=== PATIENT | female | born 2000 | race Caucasian/White ===

== ENCOUNTER → 2019-12-21 | Outpatient (CLI) | payer MEDICAID ==
--- NOTE | 2019-12-21 13:10 | Diagnostic Imaging Report ---
INDICATION: survey. TECHNIQUE: Multiple real-time grayscale images were obtained over the gravid uterus. COMPARISON: None FINDINGS: There is a single live fetus in a cephalic presentation. heart rate was recorded at 158 bpm. Placenta is anterior. Amniotic fluid index is 8.7 cm. survey demonstrates kidneys, bladder and stomach to be unremarkable. brain is unremarkable. There is a four-chamber heart. There is a three-vessel cord with normal insertion. The spine is unremarkable. Maternal adnexa was not evaluated. Biometrical measurements are as follows: Biparietal 4.98 cm, age 21 weeks 1 days. Head circumference 18.55 cm, age 21 weeks 0 days. Abdominal circumference 15.17 cm, age 20 weeks 3 days. Femur length 3.48 cm, age 21 weeks 0 days. Sonographic estimate age: 21 weeks 0 days. Sonographic estimated date of delivery: 05/02/2020. Estimated Weight: 371 gm (+/- 54 gm). LMP percentile: 61%. heart rate: 158 beats per minute. number: 1 of 1. IMPRESSION: Single live IUP 21 weeks 0 days gestational age. The estimated date of confinement sonographically is 05/02/2020. Dictated by: Dictated on workstation # [id number]
== END ==
LOC: RAD 12:00
PROVIDERS: ATTEND Obstetrics & Gynecology
DX: Z34.92 Encounter for supervision of normal pregnancy, unspecified, second trimester (principal); Z3A.21 21 weeks gestation of pregnancy
CPT/HCPCS: 76805

== ENCOUNTER 2020-01-27 | Outpatient (CLI) | payer MEDICAID ==
[~2020-01-27] VITALS: Ht 165.1 cm; Wt 68.3 kg
--- NOTE | 2020-01-27 00:05 | NUR ---
EVIE KELLY presented to unit via ambulatory from ED, with c/o NO MOVEMENT IN 6 HRS. EVIE KELLY weighed, gowned, voided, and to bed. EFHM and TOCO applied, VS taken. EVIE KELLY oriented to bed controls, call light, TV, heat, and A/C controls.
[2020-01-27 00:15] VITALS: BP 123/58
[2020-01-27 00:17] VITALS: BP 123/58
[2020-01-27] MEDS ORDERED: PREN-53 PO (00:22)
--- NOTE | 2020-01-27 00:45 | NUR ---
D/C instructions & reassurance given, pt. verbalized understanding, stating she had felt baby move X2 since on the monitor. Pt. signed D/C, copy of D/C to pt. Pt. left WS ambulatory, to home via private vehicle.
--- NOTE | 2020-01-30 11:08 | Physician Query-Final Dx ---
CARMEN ROBERTS 01/30/20 1108: Clinic Account Progress/Dx Physician Query: Please give diagnosis Please include # weeks gestation Date of Service January 27, 2020 at 00:00 RASHMI MARIE MD 01/31/20 0752: Clinic Account Progress/Dx DIAGNOSIS: Diagnosis Decreased movement at 25 weeks gestation CARMEN ROBERTS January 30, 2020 11:08 RASHMI MARIE MD January 31, 2020 07:52
== END 2020-01-27 00:45 | disposition home or self-care (01) ==
LOC: WSo → LDRP → WSo 00:45
PROVIDERS: ATTEND Obstetrics & Gynecology
DX: O36.8120 Decreased fetal movements, second trimester, not applicable or unspecified (principal); Z3A.25 25 weeks gestation of pregnancy
CPT/HCPCS: 99212

== ENCOUNTER → 2020-02-19 | Outpatient (CLI) | payer MEDICAID ==
[~2020-02-19] MED LIST: PREN-53 PO
== END ==
LOC: LAB FS 11:10
PROVIDERS: ATTEND Obstetrics & Gynecology
DX: O99.810 Abnormal glucose complicating pregnancy (principal); Z3A.00 Weeks of gestation of pregnancy not specified
CPT/HCPCS: 36415; 82951; 82952

== ENCOUNTER 2020-03-06 15:15 | Outpatient (CLI) | payer MEDICAID ==
--- NOTE | 2020-03-06 14:55 | NUR ---
pt ambulated to for NST. had BPP prior to arrival with 12/26 results. monitor applied. reports "not as much" movement today. will cont to monitor.
[2020-03-06 14:57] VITALS: BP 106/57
--- NOTE | 2020-03-06 15:43 | NUR ---
was called r/t monitor tracing and BPP results. order received to repeat BPP tomorrow.
--- NOTE | 2020-03-06 15:54 | NUR ---
dismissal instructions given, verbalizes understanding. reviewed kick count. instructed pt to follow up with repeat BPP tomorrow.
--- NOTE | 2020-03-06 15:55 | NUR ---
Pt ambulated to private vehicle with no sx's of distress noted.
--- NOTE | 2020-03-07 08:22 | Physician Query-Final Dx ---
CARMEN ROBERTS 03/07/20 0822: Clinic Account Progress/Dx Physician Query: Please give diagnosis Please give # weeks gestation Date of Service Mar 06, 2020 at 15:15 RASHMI MARIE MD 03/08/20 0733: Clinic Account Progress/Dx DIAGNOSIS: Diagnosis Decreased movement at 31 weeks gestation CARMEN ROBERTS Mar 07, 2020 08:22 RASHMI MARIE MD Mar 08, 2020 07:33
== END 2020-03-06 15:55 | disposition home or self-care (01) ==
LOC: WSo 15:15 → LDRP 15:15 → WSo 15:55
PROVIDERS: ATTEND Obstetrics & Gynecology
DX: O36.8130 Decreased fetal movements, third trimester, not applicable or unspecified (principal); Z3A.31 31 weeks gestation of pregnancy
CPT/HCPCS: 59025

== ENCOUNTER → 2020-03-06 | Outpatient (CLI) | payer MEDICAID ==
--- NOTE | 2020-03-06 15:54 | Diagnostic Imaging Report ---
INDICATION: Evaluate growth. TECHNIQUE: Multiple real-time grayscale images were obtained over the gravid uterus. COMPARISON: 12/21/2019. FINDINGS: There is a single live fetus in a transverse presentation, head to maternal left. heart rate was recorded at 155 bpm. Placenta is anterior. Amniotic fluid index is 10.7 cm. Cervical length is 3.7 cm. Biophysical profile is 4/8. Two-point reduction was given for lack of breathing movements as well as a two-point reduction for reduced movement. Biometrical measurements are as follows: Biparietal 7.9 cm, age 31 weeks 6 days. Head circumference 29.6 cm, age 32 weeks 5 days. Abdominal circumference 27.9 cm, age 32 weeks 0 days. Femur length 6.23 cm, age 32 weeks 2 days. Sonographic estimate age: 32 weeks 2 days. Sonographic estimated date of delivery: 04/29/2020. Estimated Weight: 1907 gm (+/- 279 gm). LMP percentile: 67%. heart rate: 155 beats per minute. number: 1 of 1. IMPRESSION: 1. Single live IUP at approximately 32 weeks gestational age demonstrating normal interval growth when compared with exam from 12/21/2019. 2. Biophysical profile score of 4/8. Result were given to Dr. Méndez's office at the completion of the study. Dictated by: Dictated on workstation # [id number]
== END ==
LOC: RAD 13:09
PROVIDERS: ATTEND Obstetrics & Gynecology
DX: O24.410 Gestational diabetes mellitus in pregnancy, diet controlled (principal); Z3A.32 32 weeks gestation of pregnancy
CPT/HCPCS: 76805; 76819

== ENCOUNTER → 2020-03-07 | Outpatient (CLI) | payer MEDICAID ==
--- NOTE | 2020-03-07 15:32 | Diagnostic Imaging Report ---
INDICATION: Abnormal recent biophysical profile. This study is performed for follow-up. Correlation is made with prior exam of one day earlier. FINDINGS: There is a single live fetus in a cephalic presentation. heart rate was recorded at 139 bpm. Amniotic fluid index is 9.6 cm. Biophysical profile score is normal today measuring 8 out of 8. IMPRESSION: Biophysical profile score 8 out of 8. Dictated by: Dictated on workstation # [id number]
== END ==
LOC: RAD 12:24
PROVIDERS: ATTEND Obstetrics & Gynecology
DX: O24.410 Gestational diabetes mellitus in pregnancy, diet controlled (principal); Z3A.30 30 weeks gestation of pregnancy
CPT/HCPCS: 76819

== ENCOUNTER → 2020-04-02 | Outpatient (CLI) | payer MEDICAID ==
--- NOTE | 2020-04-02 13:16 | Diagnostic Imaging Report ---
INDICATION: Followup growth. TECHNIQUE: Multiple real-time grayscale images were obtained over the gravid uterus. COMPARISON: 03/07/2020. FINDINGS: There is a single live fetus in a cephalic presentation. heart rate was recorded at 167 bpm. Placenta is anterior. Amniotic fluid index is 9.9 cm. Biophysical profile score is normal at 8 out of 8. Biometrical measurements are as follows: Biparietal 8.80 cm, age 35 weeks 4 days. Head circumference 32.99 cm, age 37 weeks 4 days. Abdominal circumference 30.66 cm, age 34 weeks 5 days. Femur length 6.58 cm, age 34 weeks 0 days. Sonographic estimate age: 35 weeks 4 days. Sonographic estimated date of delivery: 05/03/2020. Estimated Weight: 2521 gm (+/- 368 gm). LMP percentile: 38%. heart rate: 167 beats per minute. number: 1 of 1. IMPRESSION: Single live IUP 35-36 weeks gestational age showing normal interval growth when compared prior exam. Biophysical profile score is normal at 8 out of 8. Dictated by: Dictated on workstation # [id number]
== END ==
LOC: RAD 10:03
PROVIDERS: ATTEND Obstetrics & Gynecology
DX: O24.419 Gestational diabetes mellitus in pregnancy, unspecified control (principal); Z3A.35 35 weeks gestation of pregnancy
CPT/HCPCS: 76805; 76819

== ENCOUNTER → 2020-04-17 | Outpatient (CLI) | payer MEDICAID ==
--- NOTE | 2020-04-17 15:25 | Diagnostic Imaging Report ---
INDICATION: Gestational diabetes. TECHNIQUE: Multiple real-time grayscale images were obtained over the gravid uterus. COMPARISON: 04/02/2020 and 12/21/2019. FINDINGS: The prior OB ultrasound exam of 04/02/2020 noted a single live fetus approximately 35-36 weeks gestation. The biophysical profile score was 8/8 and within normal limits. On this exam, the fetus is again visualized. The fetus is cephalic in presentation. heart motion was noted with a rate of 146 bpm recorded. The biophysical profile score remains within normal limits at 8/8. The amniotic fluid index is 9.47 and on the prior exam was 9.9. The growth parameters are fairly uniform. The estimated weight is in the 82nd percentile. The placenta is anterior and there is no previa. Biometrical measurements are as follows: Biparietal 9.23 cm, age 37 weeks 4 days. Head circumference 34.36 cm, age 39 weeks 5 days. Abdominal circumference 34.39 cm, age 38 weeks 3 days. Femur length 7.40 cm, age 38 weeks 0 days. Sonographic estimate age: 38 weeks 3 days. Sonographic estimated date of delivery: 04/28/2020. Estimated Weight: 3440 gm (+/- 502 gm). LMP percentile: 82%. heart rate: 146 beats per minute. number: 1 of 1. IMPRESSION: 1. There is a single live fetus in cephalic presentation approximately 38 weeks gestation. The EDC remains 05/02/2020 by the first exam. 2. The biophysical profile score remains 8/8 and within normal limits. 3. The growth parameters indicate the estimated weight is in the 82nd percentile. Dictated by: Dictated on workstation # [id number]
== END ==
LOC: RAD 12:59
PROVIDERS: ATTEND Obstetrics & Gynecology
DX: O24.410 Gestational diabetes mellitus in pregnancy, diet controlled (principal); Z3A.38 38 weeks gestation of pregnancy
CPT/HCPCS: 76805; 76819

== ENCOUNTER 2020-04-30 19:05 | Inpatient (IN) | payer MEDICAID ==
[~2020-04-30] VITALS: Ht 165.1 cm; Wt 68.6 kg
--- NOTE | 2020-04-30 19:10 | NUR ---
EVIE KELLY presented to unit via ambulation from ED, accompanied by significant other, for INDUCTION. EVIE KELLY weighed, gowned, voided, and to bed. EFHM and TOCO applied, VS taken. EVIE KELLY oriented to bed controls, call light, TV, heat, and A/C controls.
[2020-04-30 19:30] VITALS: BP 111/69
--- NOTE | 2020-04-30 19:31 | NUR ---
Dr. Carlson notified of patient arrival and admission orders received.
[2020-04-30] MEDS ORDERED: LACTATED RINGERS 1,000 ML IV SCH (19:42)
[2020-04-30] MEDS ORDERED: MINERAL OIL CONCENTRATE 99.9% 15 ML UDC TOP PRN (19:45)
[2020-04-30] MEDS ORDERED: MISOPROSTOL 100 MCG (CYTOTEC) TAB PO NR (19:45)
[2020-04-30] MEDS: D5 LR IV SOLUTION 1,000 ML IV SCH (20:08)
[2020-04-30 20:20] LABS: BASOPHILS % (AUTO) 0 % (0-10); EOSINOPHILS % (AUTO) 1 % (0-10); HEMATOCRIT 32 % (35-52); HEMOGLOBIN 10.4 G/DL (11.5-16.0); LYMPHOCYTES # (AUTO) 1.3 X 10^3 (1.0-4.0); LYMPHOCYTES % (AUTO) 15 % (12-44); MEAN CORPUSCULAR HEMOGLOBIN 26 PG (25-34); MEAN CORPUSCULAR HGB CONC 33 G/DL (32-36); MEAN CORPUSCULAR VOLUME 80 FL (80-99); MEAN PLATELET VOLUME 11.2 FL (7.4-10.4); MONOCYTES # (AUTO) 0.9 X 10^3 (0.0-1.0); MONOCYTES % (AUTO) 10 % (0-12); NEUTROPHILS # (AUTO) 6.6 X 10^3 (1.8-7.8); NEUTROPHILS % (AUTO) 75 % (42-75); PLATELET COUNT 220 10^3/uL (130-400); RED CELL DISTRIBUTION WIDTH 14.4 % (10.0-14.5); WHITE BLOOD COUNT 8.8 10^3/uL (4.3-11.0)
--- OUTSIDE RECORDS SUMMARY | 2020-04-30 20:21 | XMS REPORT | Continuity of Care Document ---
Author Organization Unknown Address Unknown Phone Unavailable Allergies Active Description Code Type Severity Reaction Onset Reported/Identified Relationship to Patient Clinical Status Yes amoxicillin [id number] Drug Aller gy Mild N/A 01/27/2020 Yes clavulanic acid [id number] D rug Allergy Mild N/A 01/27/2020 Medications There is no data. Problems Date Dx Coded Attending Type Code Diagnosis Diagnosed By 12/22/2019 ARON BOWLING DO, Ot Z34.9 2 ENCNTR FOR SUPRVSN OF NORMAL PREG, UNSP, 12/22/2019 ARON BOWLING DO Ot Z3A.2 1 21 WEEKS GESTATION OF 01/27/2020 ARON BOWLING DO Ot Z34.9 2 ENCNTR FOR SUPRVSN OF NORMAL PREG, UNSP, 01/27/2020 ARON BOWLING DO Ot Z3A.2 1 21 WEEKS GESTATION OF 01/27/2020 RASHMI MARIE MD Ot O36.8120 DECREASED MOVEMENTS, SECOND TRIMES 01/27/2020 RASHMI MARIE MD Ot Z3A.25 25 WEEKS GESTATION OF 01/30/2020 RASHMI MARIE MD Ot O36.8120 DECREASED MOVEMENTS, SECOND TRIMES 01/30/2020 RASHMI MARIE MD Ot Z3A.25 25 WEEKS GESTATION OF 02/02/2020 RASHMI MARIE MD Ot O36.8120 DECREASED MOVEMENTS, SECOND TRIMES 02/02/2020 RASHMI MARIE MD Ot Z3A.25 25 WEEKS GESTATION OF 03/06/2020 RASHMI MARIE MD Ot O36.8130 DECREASED MOVEMENTS, THIRD TRIMEST 03/06/2020 RASHMI MARIE MD Ot Z3A.31 31 WEEKS GESTATION OF 03/07/2020 ARON BOWLING DO Ot O24.4 10 GESTATIONAL DIABETES MELLITUS IN PREGNAN 03/07/2020 BOWLING DO, ARON C Ot Z3A.3 2 32 WEEKS GESTATION OF 03/11/2020 BOWLING DO, ARON C Ot O24.4 10 GESTATIONAL DIABETES MELLITUS IN PREGNAN 03/11/2020 BOWLING DO, ARON C Ot Z3A.3 0 30 WEEKS GESTATION OF 03/11/2020 RASHMI MARIE MD Ot O36.8130 DECREASED MOVEMENTS, THIRD TRIMEST 03/11/2020 RASHMI MARIE MD Ot Z3A.31 31 WEEKS GESTATION OF 04/04/2020 BOWLING DO, ARON C Ot O24.4 19 GESTATIONAL DIABETES MELLITUS IN PREGNAN 04/04/2020 BOWLING DO, ARON C Ot Z3A.3 5 35 WEEKS GESTATION OF 04/17/2020 BOWLING DO, ARNO C Ot Z34.9 2 ENCNTR FOR SUPRVSN OF NORMAL PREG, UNSP, 04/17/2020 BOWLING DO, ARON C Ot Z3A.2 1 21 WEEKS GESTATION OF 04/17/2020 BOWLING DO, ARON C Ot O99.8 10 ABNORMAL GLUCOSE COMPLICATING 04/17/2020 BOWLING DO, ARON C Ot Z3A.0 0 WEEKS OF GESTATION OF NOT SPEC 04/17/2020 BOWLING DO, ARON C Ot O24.4 10 GESTATIONAL DIABETES MELLITUS IN PREGNAN 04/17/2020 BOWLING DO, ARON C Ot Z3A.3 2 32 WEEKS GESTATION OF 04/17/2020 BOWLING DO, ARON C Ot O24.4 10 GESTATIONAL DIABETES MELLITUS IN PREGNAN 04/17/2020 BOWLING DO, ARON C Ot Z3A.3 0 30 WEEKS GESTATION OF 04/17/2020 BOWLING DO, ARON C Ot O24.4 19 GESTATIONAL DIABETES MELLITUS IN PREGNAN 04/17/2020 BOWLING DO, ARON C Ot Z3A.3 5 35 WEEKS GESTATION OF 04/18/2020 BOWLING DO, ARON C Ot O24.4 10 GESTATIONAL DIABETES MELLITUS IN PREGNAN 04/18/2020 BOWLING DO, ARON C Ot Z3A.3 8 38 WEEKS GESTATION OF Procedures There is no data. Results Test Result Range SUREPATH PAP RFX HPV mRNA E6/E7 - 10:45 CLINICAL INFORMATION: NRG LMP: NRG PREV. PAP: NRG PREV. BX: NRG SOURCE: Cervix NRG STATEMENT OF ADEQUACY: NRG INTERPRETATION/RESULT: NRG GLASS BENDER: NRG INFECTION: NRG COMMENT NRG GLUCOSE ALPHONSE 3 HR GEST DIAB P - 0 11:27 GLUCOSE ALPHONSE 3 HR GEST DIAB P NRG Encounters ACCT No. Visit Date/Time Discharge Status Pt. Type Provider Facility Loc./Unit Complaint [id number] 04/16/2020 13:45:00 04/16/2020 23:59: 59 CLS Out[facility] [id number] 08/23/2019 10:15:00 Document Registration [id number] 04/17/2020 12:59:00 23:59:59 CLS Outpatient ARON BOWLING DO [facility] RAD GDM [id number] 04/02/2020 10:03:00 23:59:59 CLS Outpatient ARON BOWLING DO [facility] RAD 34 WEEKS GESTATION OF P REGRAJCY [id number] 03/07/2020 12:24:00 23:59:59 CLS Outpatient ARON BOWLING DO [facility] RAD 30 WEEKS GESTATION OF P REGNANCY [id number] 03/06/2020 13:09:00 23:59:59 CLS Outpatient ARON BOWLING DO [facility] RAD GDM [id number] 03/06/2020 15:15:00 15:55:00 DIS Outpatient [facility]YS[facility] FILE [id number] 02/19/2020 11:10:00 23:59:59 CLS Outpatient ARON BOWLING DO [facility] LAB FS ABNORMAL OCTAVIANO GLUC OSE CHALLENGE TEST ANTEPART [id number] 01/27/2020 00:00:00 00:45:00 DIS Outpatient RASHMI MARIE MD [facility] WSo NO MOVEME NT IN 6 HRS [id number] 12/21/2019 12:00:00 020 23:59:59 CLS Outpatient ARON BOWLING DO [facility] RAD FETUS PRESENT DURING SE COND TRIMESTER [id number] 05/01/2020 07:30:00 P EN Preadmit ARON BOWLING DO I NDUCTION
--- OUTSIDE RECORDS SUMMARY | 2020-04-30 20:21 | XMS REPORT ---
Author Author Pastora JUAN [facility] Address [address] [place] [address] Care Team Providers Care Firer Kiln Name Role Phone NAIDA JUAN Unavailable PROBLEMS Unknown Problems ALLERGIES No Information ENCOUNTERS Encounter Location Date Diagnosis [facility] [address] [facility] [id number] [address] [place] [id number] Apr, Encounter for dental examina tion and cleaning without abnormal findings Z01.20 [facility] [address] [facility] [id number] [address] [place] [address] Nov, [facility] [address] [facility] [address] [id number] [place], [place] [phone] Apr, Dental examination Z01.20 [facility] [address] [facility] C [id number] [place], [place] [phone] January, Dental examination Z01.20 IMMUNIZATIONS No Known Immunizations SOCIAL HISTORY Never Assessed REASON FOR VISIT child restorative PLAN OF CARE VITAL SIGNS MEDICATIONS No Known Medications RESULTS No Results PROCEDURES No Known procedures INSTRUCTIONS MEDICATIONS ADMINISTERED No Known Medications MEDICAL (GENERAL) HISTORY Type Description Date Medical History bronchitis
--- OUTSIDE RECORDS SUMMARY | 2020-04-30 20:21 | XMS REPORT ---
Author Author Pastora ELIZONDO Organization [facility] Address [address] [place] [address] Care Team Providers Care Developmental Writing Instructor Name Role Phone LORENA ELIZONDO Unavailable PROBLEMS Unknown Problems ALLERGIES No Information ENCOUNTERS Encounter Location Date Diagnosis [facility] [address] [facility] [id number] [place] [phone] Mar, [facility] [address] [facility] [id number] [address] [place] [id number] Feb, Dental examination Z01.20 ; Gingivitis K05.10 ; Oral health maintenance status requiring routine preventive dental care K08.9 and Caries K02.[address] 340 [id number] [address] Nov, Rash R21 [address] [id number] [address] 14 Sep, 2019 Viral upper respiratory trac t infection J06.[address] 340B [id number] [address] Sep, [address] 340B [id number], [place] [address] Aug, [facility] [address] 340 [id number], [place] [address] Aug, Dermatitis L30.9 and Possibl e Z32.[address] 340B [id number] [address] 04 Aug, 2019 Well woman exam with routine gynecological exam Z01.419 and Skin rash R21 [address] 340B [id number] [address] May, [facility] [address] [id number] [place] [address] Dec, [facility] [address] 340B [id number] [place] [address] Dec, [facility] [address] 340B [id number] [place] [address] Dec, Hematuria, unspecified type R31.9 [facility] [address] [facility] [id number] [address] [place] [id number] Apr, Encounter for dental examina tion and cleaning without abnormal findings Z01.20 [facility] [address] [facility] [id number] [address] [place] [address] Nov, [facility] [place] [address] [place] [address] Apr, 16 [facility]01.20 [email or web address] [address] [place] [address] January, 16 Dental examination Z01.20 IMMUNIZATIONS No Known Immunizations SOCIAL HISTORY Never Assessed REASON FOR VISIT PLAN OF CARE VITAL SIGNS MEDICATIONS Medication Instructions Dosage Frequency Start Date End Date Duration S tatus Pyridium 200 MG Orally Three times a day 1 tablet after meals 8h 2 day(s) Active SERGIO 3-0.02 MG Orally Once a day 1 tablet 24h Dec, 28 day(s) Active Cipro 500 MG Orally every 12 hrs 1 tablet 12h Dec, 1 0 day(s) Active RESULTS No Results PROCEDURES No Known procedures INSTRUCTIONS MEDICATIONS ADMINISTERED No Known Medications MEDICAL (GENERAL) HISTORY Type Description Date Medical History Bronchitis Surgical History No Surgical history information Hospitalization History poison luis felipe/oak as a child
--- OUTSIDE RECORDS SUMMARY | 2020-04-30 20:21 | XMS REPORT ---
Author Author Pastora DÍAZ [facility] Address [address] [place] [address] Care Team Providers Care Mini Baccarat Dealer Name Role Phone WIL DÍAZ Unavailable PROBLEMS Unknown Problems ALLERGIES No Information ENCOUNTERS Encounter Location Date Diagnosis [facility] [address] [facility] [id number] [place] [phone] Mar, [facility] [address] [facility] [id number] [address] [place] [id number] Feb, Dental examination Z01.20 ; Gingivitis K05.10 ; Oral health maintenance status requiring routine preventive dental care K08.9 and Caries K02.[address] 340 [id number], [place] [address] Nov, Rash R21 [address] [id number] [address] 14 Sep, 2019 Viral upper respiratory trac t infection J06.[address] [id number], [place] [address] Sep, [place] [address] [id number] [address] Aug, [facility] [address] 340 [id number], [place] [address] Aug, Dermatitis L30.9 and Possibl e Z32.[address] 340B [id number], [place] [address] 04 Aug, 2019 Well woman exam with routine gynecological exam Z01.419 and Skin rash R21 [address] 340 [id number], [place] [address] May, [facility] [address] [id number] [place] [address] Dec, [facility] [address] 340B [id number] [place] [address] Dec, [facility] [address] 340B [id number] [place] [address] Dec, Hematuria, unspecified type R31.9 [facility] [address] [facility] [id number] [place] [id number] Apr, Encounter for dental examina tion and cleaning without abnormal findings Z01.20 [facility] [address] [facility] [id number] [place], [place] [address] Nov, [facility] [place] [address] [place] [address] Apr, 16 Dental examination Z01.20 [facility] [address] [place] [address] January, 16 Dental examination Z01.20 IMMUNIZATIONS No Known Immunizations SOCIAL HISTORY Never Assessed REASON FOR VISIT Requests Return Call PLAN OF CARE VITAL SIGNS MEDICATIONS Unknown Medications RESULTS No Results PROCEDURES No Known procedures INSTRUCTIONS MEDICATIONS ADMINISTERED No Known Medications MEDICAL (GENERAL) HISTORY Type Description Date Medical History Bronchitis Surgical History No Surgical history information Hospitalization History poison luis felipe/oak as a child
--- OUTSIDE RECORDS SUMMARY | 2020-04-30 20:21 | XMS REPORT ---
Author Author Pastora JUAN [facility] eClinicalWorks Address Unknown Phone Unavailable Care Team Providers Care Business Office Specialist Name Role Phone NAIDA JUAN CP Unavailable Allergies, Adverse Reactions, Alerts Substance Reaction Event Type N.K.D.A. Info Not Available Non Drug Allergy Problems Problem Type Condition Code Onset Dates Condition Statu s Assessment Dental examination Z01.20 Active Medications Medication Code System Code Instructions Start Date End Date Status Dosage Azithromycin [facility] [id number] not d efined Procedures Procedure Coding System Code Date RESIN COMPOS - 2 SURFACES POSTERIOR CPT-4 D2392 May 08, 2016 RESIN COMPOS - 3 SURFACES POSTERIOR CPT-4 D2393 May 08, 2016 RESIN COMPOS - 2 SURFACES POSTERIOR CPT-4 D2392 May 08, 2016 Results No Known Results Summary Purpose eClinicalWorks Submission
--- OUTSIDE RECORDS SUMMARY | 2020-04-30 20:21 | XMS REPORT ---
Author Author Pastora BELLA Organization [facility] Address [address] [place] [address] Phone Unavailable Care Team Providers Care Cds Sales Advisor Name Role Phone ZIYAD BELLA Unavailable Unavailable PROBLEMS Unknown Problems ALLERGIES Substance Reaction Event Type Date Status AUGMENTIN Unknown Non Drug Allergy Apr, Active ENCOUNTERS Encounter Location Date Diagnosis [facility] [address] [id number] [address] [place], [place] [id number] Apr, Encounter for dental examina tion and cleaning without abnormal findings Z01.20 [facility] [address] [id number] [address] [place] [address] Nov, [facility] [place] [address] [id number] [place], [place] [address] Apr, Dental examination Z01.20 [facility] [place] [address] [id number] [place], [place] [address] January, Dental examination Z01.20 IMMUNIZATIONS No Known Immunizations SOCIAL HISTORY Never Assessed REASON FOR VISIT ADULT PROPHY AND EDDIE 1/2 LATE PLAN OF CARE Activity Details Follow Up JEANA Reason:RESTORATIVE 1 HO UR VITAL SIGNS MEDICATIONS Medication Instructions Dosage Frequency Start Date End Date Duration S tatus Nexa Plus 29-1.25-350 MG Orally Once a day 1 capsule 24h Active RESULTS No Results PROCEDURES Procedure Date Ordered Result Body Site PERIODIC ORAL EXAMINATION May 14, 2017 INTRAORL-PERIAPICAL 1 FILM 83375 May 14, 2017 TOPICAL FLUORIDE VARNISH May 14, 2017 PROPHYLAXIS - ADULT May 14, 2017 INTRAORL-PERIAPICAL EA ADD FILM May 14, 2017 INTRAORL-PERIAPICAL EA ADD FILM May 14, 2017 BITEWINGS - FOUR FILMS May 14, 2017 INTRAORL-PERIAPICAL EA ADD FILM May 14, 2017 INSTRUCTIONS MEDICATIONS ADMINISTERED No Known Medications MEDICAL (GENERAL) HISTORY Type Description Date Medical History bronchitis
--- NOTE | 2020-04-30 20:28 | NUR ---
Dr. Carlson notified of SVE. New orders received.
--- NOTE | 2020-04-30 22:00 | NUR ---
Dr. Carlson updated on patient status. No new orders received.
[2020-04-30 23:40] VITALS: BP 110/58
[2020-04-30] MEDS ORDERED: MISOPROSTOL 100 MCG (CYTOTEC) TAB PO SCH (23:45)
[2020-05-01] VITALS (36 sets, daily range): BP systolic 103–130; BP diastolic 54–77
--- NOTE | 2020-05-01 03:03 | NUR ---
Dr. Carlson notified of patient complaints and SVE. New orders received.
[2020-05-01] MEDS ORDERED: CLINDAMYCIN 900 MG/50 ML IVPB 50 ML IV ONE (03:13)
[2020-05-01] MEDS ORDERED: CALCIUM CARBONATE 500 MG (TUMS) TAB.CHEW PO PRN (03:15)
[2020-05-01] MEDS ORDERED: LOPERAMIDE 2 MG (IMODIUM) TABLET PO PRN (03:15)
[2020-05-01] MEDS ORDERED: LOPERAMIDE 2 MG (IMODIUM) TABLET PO ONE (03:15)
[2020-05-01] MEDS ORDERED: FAMOTIDINE 20MG/2ML IV (PEPCID) IVP ONE (03:15)
--- NOTE | 2020-05-01 03:51 | NUR ---
Dr. Carlson notified of SVE and patient requesting pain medication. New orders received.
[2020-05-01] MEDS ORDERED: BUTORPHANOL INJ 2 MG/ML (STADOL) VIAL IV PRN (04:00)
[2020-05-01] MEDS ORDERED: METF-397 PO (04:39)
--- NOTE | 2020-05-01 06:20 | NUR ---
Dr. Carlson updated on patient. Orders received for epidural.
[2020-05-01] MEDS ORDERED: fentaNYL 2 mcg/ml BUPIVA 0.125 100 ML ONE (06:40)
[2020-05-01] MEDS ORDERED: fentaNYL INJECTION 100 MCG/2 ML AMP ONE (06:45)
[2020-05-01] MEDS ORDERED: OXYTOCIN PRE-MIX DRIP 500 ML IV SCH ×3 (07:30→11:36)
[2020-05-01] MEDS: D5 LR IV SOLUTION 1,000 ML IV SCH (07:32)
[2020-05-01] MEDS ORDERED: CLINDAMYCIN 900 MG/50 ML IVPB 50 ML IV SCH (08:00)
--- NOTE | 2020-05-01 08:13 | NUR ---
Dr Carlson updated on pt report. Wendy RN SVE at 0615: 6-7cm. Pt now has epidural in place and comfortable. SROM during epidural at 0730, clear fluid. UC q2min without pitocin. This RN has not yet checked SVE but will soon after adams catheter placement. Dr Carlson states there is no need to start Pitocin if pt is making cervical change. This RN will notify Dr with updated SVE shortly.
[2020-05-01] MEDS ORDERED: LIDOCAINE/EPI 2% 1:200,00 (XYLOCAINE) 10 ML VIAL ONE (08:42)
--- NOTE | 2020-05-01 08:51 | History & Physical ---
History and Physical Date Seen by Provider: May 01, 2020 Time Seen by Provider: 08:48 This patient is a 19-year-old [address] Lord. She is admitted last evening for cervical ripening however her cervix was found to be dilated 2 half centimeters and she is oscar every 3-4 minutes and changing her cervix. She is to be managed expectantly through the night and is now dilated to 9 cm with spontaneous labor. She experienced spontaneous rupture membranes and hour or so ago as her epidural was placed. Her has been complicated by gestational diabetes that has been well controlled with metformin. Her GBS culture was positive she is allergic to penicillin and has been on Cleocin since admission. Patient currently is comfortable with the epidural and has no complaints Allergies are to augmentin - reaction is unknown Medications are vitamins and metformin Medical social and surgical histories are per the antepartum record for Dr. Fadia GONZALES exam is normal Neck is supple no lymphadenopathy no thyromegaly Abdomen gravid soft nontender nondistended Extremities show no clubbing or cyanosis. There is no Homans sign. Pelvic exam is deferred have her last exam per the labor and delivery nurse showed a cervix 9 cm dilated 100 percent effaced vertex presentation and about 0 station Patient had experienced spontaneous rupture membranes with clear fluid earlier this morning Laboratory Tests 04/30/20 20:05 Assessment and plan term at 39+ weeks' gestation in spontaneous labor in a patient with gestational diabetes that is well controlled and with a GBS positive culture. Patient's blood sugars have been acceptable and she is on Cleocin for prophylaxis of GBS. We anticipate a vaginal delivery Term in labor at 39+ weeks gestation Allergies and Home Medications Allergies Coded Allergies: amoxicillin (Verified Allergy, Mild, 04/30/20) clavulanic acid (Verified Allergy, Mild, 04/30/20) Home Medications Metformin HCl 500 Mg Tablet, 500 MG PO BID, (Reported) [id number]/Iron Fumarate/FA/Dss 1 Each Tablet, 1 EACH PO DAILY, (Reported) Patient Home Medication List Home Medication List Reviewed: Yes Clinical Quality Measures DVT/VTE Risk/Contraindication: Risk Factor Score Per Nursin RFS Level Per Nursing on Admit: 1=Low/No VTE PPX RASHMI MARIE MD May 01, 2020 08:51
[2020-05-01] MEDS ORDERED: IBUP-1780 PO (08:57)
[2020-05-01] MEDS ORDERED: DOCU-143 PO (08:57)
[2020-05-01] MEDS ORDERED: OXYC1TAB87 PO (08:57)
--- NOTE | 2020-05-01 08:58 | Discharge Inst-Surgical ---
Discharge Inst-Surgical Depart Medication/Instructions New, Converted or Re-Newed RX: RX on Chart Consults/Follow Up Patient Instructions: As directed Orders & Referrals Follow Up Appt: Call to make follow up appt. for patient in [address] Lord. Activity Per routine post vaginal delivery instructions. Please call in RX to patient pharmacy. Diet as tolerated Patient may shower or tub bathe as desired. Activity Activity as Tolerated: No Diet Discharge Diet: No Restrictions RASHMI MARIE MD May 01, 2020 08:58
--- NOTE | 2020-05-01 09:05 | NUR ---
Dr Carlson on unit. Asks RN to turn off epidural and start pushing with patient at this time. RN DC adams catheter, sets room up for delivery, and starts pushing with pt from [id number]. RN notifies Dr Carlson that there is still an anterior lip that does not reduce with pushing, pt still cannot feel pressure, and is not pushing well/effectively. gives order to start Pitocin at 6 milliunits now, stop pushing with pt, sit up to labor down more, and begin pushing with pt again once she can feel pressure with UC.
[2020-05-01] MEDS ORDERED: LIDOCAINE/EPI 2% 1:200,00 (XYLOCAINE) 10 ML VIAL INJ ONE (10:40)
--- NOTE | 2020-05-01 11:22 | NUR ---
Shad Morfin REPAIRER [employer]ITCH[employer] called by this RN at this time to place epidural orders.
[2020-05-01] MEDS ORDERED: MEASLES,MUMPS,RUBELLA 1 EA INJ SC ONE (11:45)
[2020-05-01] MEDS ORDERED: BENZOCAINE/MENTHOL (DERMOPLAST) 60 ML CAN TP PRN (11:45)
[2020-05-01] MEDS ORDERED: TETANUS,DIPTH,PERTUSS P/F (BOOSTRIX) 0.5 ML VIAL IM ONE (11:45)
[2020-05-01] MEDS ORDERED: oxyCODONE/APAP 5/325MG (PERCOCET 5) TABLET PO PRN (11:45)
[2020-05-01] MEDS ORDERED: ONDANSETRON 4 MG/2 ML (SDV) Z0FRAN IVP PRN (11:45)
--- NOTE | 2020-05-01 11:58 | NUR ---
LR BOLUS STARTED BY FATOU NAVARRO RN AT 0630. 1000ML LR INFUSED COMPLETELY AT 0700. ANESTHESIA AT BEDSIDE FOR EPIDURAL PLACEMENT AT 0708. EPIDURAL STARTED AT 0742 BY BANDAR ANDRE CRNA. EPIDURAL DC'D BY THIS RN AFTER DELIVERY APPROX 1100 AND WASTED APPROX 115ML, CHARTED IN OMNICELL. ANESTHESIA HAVE BEEN CALLED FOR ORDERS TO BE PLACED.
[2020-05-01] MEDS ORDERED: WITCH HAZEL(TUCKS) 40 EA JAR TOP PRN (12:00)
[2020-05-01] MEDS: KETOROLAC 30 MG/ML VIAL IVP SCH ×2 (12:10→18:23)
[2020-05-01] MEDS ORDERED: METOCLOPRAMIDE INJ 10 MG/2 ML (REGLAN) IV PRN (12:39)
[2020-05-01] MEDS ORDERED: NALOXONE 0.4 MG/ML 1 ML (NARCAN) VIAL IV PRN ×2 (12:39)
[2020-05-01] MEDS ORDERED: ONDANSETRON 4 MG/2 ML (SDV) Z0FRAN IV PRN (12:39)
[2020-05-01] MEDS ORDERED: LACTATED RINGERS 1,000 ML IV ONE (12:39)
[2020-05-01] MEDS ORDERED: EPIDURAL (fentaNYL 2 MCG/ML BUPIVA 0.125%)100 ML BAG EPI PRN (12:39)
[2020-05-01] MEDS ORDERED: diphenhydrAMINE 50 MG/ML INJ (BENADRYL) IV PRN (12:39)
--- NOTE | 2020-05-01 13:00 | NUR ---
recovery note: 1100: Recovery period begins. Fundus firm, midline, 1 below umbilicus, moderate bleeding. pitocin rate at 60 per hig[place]bothams order. denies needs at this time. call light within reach. so at bedside. this rn in and out of room frequently. 1115: Fundus firm, midline, 1 below umbilicus, small bleeding. pitocin rate at 60 per higginbothams order. denies needs at this time. call light within reach. so at bedside. this rn in and out of room frequently. 1130: Fundus firm, midline, 1 below umbilicus, small bleeding. pitocin rate at 60 per higginbothams order. pt infant. denies needs at this time. call light within reach. so at bedside. this rn in and out of room frequently. 1145: Fundus firm, midline, 1 below umbilicus, small bleeding. pitocin rate at 60 per higginbothams order. pt continues to breastfeed infant. denies needs at this time. call light within reach. so at bedside. this rn in and out of room frequently. 1200: Fundus firm, midline, 1 below umbilicus, moderate bleeding. pitocin rate at 60 per hig[place]bothams order. pt continues to breastfeed infant. denies needs at this time. call light within reach. so at bedside. 1230: Fundus firm, midline, 1 below umbilicus, moderate bleeding. pitocin rate at 60 per higginbothams order. pt continues to breastfeed infant. denies needs at this time. call light within reach. so at bedside. 1300: Fundus firm, midline, 1 below umbilicus, small bleeding. pitocin rate at 60 per higginbothams order.this rn helps pt up to bathroom at this time, pericare done and explained to pt, pt verbalizes/demonstrates understanding. room packed to trasnfer to PP room. waiting on room to be cleaned. pt states she is okay waiting on room with large bed. denies needs at this time. call light within reach. so at bedside. pt given regular lunch tray.
--- NOTE | 2020-05-01 13:23 | OPERATIVE REPORT ---
DATE OF SERVICE: 05/01/2020 DELIVERY NOTE The patient delivered by term spontaneous vaginal delivery at 39+ weeks gestation a viable male infant with Apgars of 9 and 9 at 1 and 5 minutes respectively. Weight that is 7 lbs. 7 oz., cord blood pH is pending. time of 10:48. The was delivered over a midline episiotomy was performed to shorten the second stage of labor as the heart rate was down into the 70s and 80s and delivery was not forthcoming with maternal expulsive effort. The episiotomy was performed and the delivery accomplished promptly. The baby resuscitated then on the perineum. Baby recovered fairly promptly. When the umbilical cord was pulseless, it was doubly clamped. The father cut the cord. The baby was passed to mom's abdomen. Cord bloods were obtained. The placenta delivered spontaneously Edgar. It was normal with a 3-vessel cord. It was sent to pathology for permanent section. The cervix, vagina, perineum, and rectum were examined for defects and there was a small left periurethral laceration. The episiotomy had extended a laceration on the posterior vaginal floor of a second-degree approximately custodial up the vaginal floor. This laceration actually likely was occurring as the baby was being pushed down on to the perineum. The entire complex was repaired with a single suture of 3-0 Vicryl Rapide in the usual manner to good hemostasis and good reapproximation. The patient tolerated the delivery and the repair well. The patient had an epidural. The perineum had been infiltrated with 1% lidocaine with epinephrine just prior to delivery. Sponge and needle counts were correct on completion of the delivery and the repair. Estimated blood loss was around 300 mL. The patient tolerated the delivery and repair well and remained in the LDR for recovery. The baby remained with the mom. Job ID: [id number] DocumentID: [id number] Dictated Date: 05/01/2020 11:06:04 Terry Cloth Cutter Hand Date: 05/01/2020 13:22:55 Dictated By: MD EBONI REICH
--- NOTE | 2020-05-01 13:45 | NUR ---
Report received from Shailesh Head RN
[2020-05-01] MEDS: DOCUSATE SODIUM 100 MG (COLACE) CAP PO SCH (21:30)
[2020-05-02] MEDS ORDERED: IBUPROFEN 800 MG (MOTRIN) TAB PO ONE (03:50)
[2020-05-02 03:57] VITALS: BP 112/66
[2020-05-02] MEDS: IBUPROFEN 800 MG (MOTRIN) TAB PO SCH ×4 (03:57→21:01)
[2020-05-02 09:00] VITALS: BP 115/56
--- NOTE | 2020-05-02 09:00 | NUR ---
A.M. ASSESSMENT COMPLETED VSS. DOING WELL. CARING FOR IN ROOM. GOOD INTERACTION NOTED.
--- NOTE | 2020-05-02 09:04 | Progress Note ---
Standard Progress Note Progress Notes/Assess & Plan Date Seen by a Provider: May 02, 2020 Time Seen by a Provider: 09:03 Progress/Assessment & Plan This patient is without complaint. She is ambulating, voiding, tolerating oral intake well has good pain control. Vital Signs Date Time Temp Pulse Resp B/P (MAP) Pulse Ox O2 Delivery O2 Flow Rate FiO2 05/02/20 03:57 36.7 78 16 112/66 (81) 96 Room Air 05/01/20 23:30 36.6 76 18 115/58 (77) 98 Room Air 05/01/20 19:30 36.8 90 16 118/66 (83) 97 Room Air 05/01/20 15:38 37.4 74 16 113/61 (78) 98 Room Air 05/01/20 12:27 82 108/59 (75) Room Air 05/01/20 12:12 77 16 111/59 (76) Room Air 05/01/20 11:57 81 113/59 (77) Room Air 05/01/20 11:42 90 109/56 (73) Room Air 05/01/20 11:27 95 111/54 (73) Room Air 05/01/20 11:12 96 119/59 (79) Room Air 05/01/20 11:00 83 115/57 (76) Room Air 05/01/20 10:55 37.2 98 16 130/55 (80) Room Air 05/01/20 10:45 101 128/66 (86) Room Air 05/01/20 10:30 Room Air 05/01/20 10:15 96 18 124/60 (81) Room Air 05/01/20 10:00 76 103/57 (72) Room Air 05/01/20 09:45 76 107/58 (74) Room Air 05/01/20 09:30 75 105/58 (74) Room Air 05/01/20 09:15 37.0 90 109/58 (75) Room Air I & O 05/02/20 07:00 Intake Total 2100 ml Balance 2100 ml Vital signs are stable. Patient is afebrile. Fundus is firm below the umbilicus and nontender. Extremities show no clubbing or cyanosis. There is no Homans sign. Assessment and plan day number 1 status post term spontaneous vaginal delivery doing well. Plan is for routine convalescence. CYNTHIA,RASHMI G MD May 02, 2020 09:04
[2020-05-02] MEDS: DOCUSATE SODIUM 100 MG (COLACE) CAP PO SCH ×2 (09:19→21:01)
--- NOTE | 2020-05-02 10:15 | NUR ---
IN TO SEE PT AND ASSIST NEEDED.
--- NOTE | 2020-05-02 11:35 | NUR ---
PT CALLED THIS RN TO ROOM AFTER PASSING A 5 CM CLOT. VAGINAL FLOW LT RUBRA. FF U/2. ENCOURAGED PT TO INFORM THIS RN IF PASSES ANY CLOTS AGAIN.
[2020-05-02 13:45] VITALS: BP 110/55
--- NOTE | 2020-05-02 14:30 | NUR ---
PT PLACED CALL LIGHT ON R/T PASSING ANOTHER 4-5 CM CLOT. FF U/2. VAG FLOW LIGHT RUBRA. REASSURANCE GIVEN. VSS.
--- NOTE | 2020-05-02 14:47 | Anesthesia-Regional Post-Op ---
Regional Patient Condition Mental Status: Alert, Oriented x3 Circulation: Same as Pre-Op Headache: Absent Sensation: Full Recovery Motor Block: Absent Post Op Complications Complications None Follow Up Care/Instructions Patient Instructions None needed. Anesthesia/Patient Condition Patient is doing well, no complaints, stable vital signs, no apparent adverse anesthesia problems. No complications reported per nursing. PATRIA LANG CRNA May 02, 2020 14:47
[2020-05-02 17:30] VITALS: BP 119/58
--- NOTE | 2020-05-02 17:30 | NUR ---
CONTINUES TO DO WELL. CARING FOR INFANT IN ROOM. GOOD INTERACTION NOTED. VSS. DENIES ANY PAIN.
--- NOTE | 2020-05-02 21:02 | NUR ---
Pt resting in bed. s/o at bedside. pt denies any needs at this time. Will continue to monitor.
[2020-05-02 23:09] VITALS: BP 121/73
[2020-05-03] MEDS: IBUPROFEN 800 MG (MOTRIN) TAB PO SCH ×2 (03:11→10:15)
[2020-05-03 03:15] VITALS: BP 93/58
--- NOTE | 2020-05-03 07:20 | NUR ---
Dr. Carlson here to see pt. Plan for D/C today
--- NOTE | 2020-05-03 07:33 | Progress Note ---
Standard Progress Note Progress Notes/Assess & Plan Date Seen by a Provider: May 03, 2020 Time Seen by a Provider: 07:32 Progress/Assessment & Plan This patient is without complaint. She is ambulating, voiding, tolerating oral intake well has good pain control. Vital Signs Date Time Temp Pulse Resp B/P (MAP) Pulse Ox O2 Delivery O2 Flow Rate FiO2 05/02/20 03:57 36.7 78 16 112/66 (81) 96 Room Air 05/01/20 23:30 36.6 76 18 115/58 (77) 98 Room Air 05/01/20 19:30 36.8 90 16 118/66 (83) 97 Room Air 05/01/20 15:38 37.4 74 16 113/61 (78) 98 Room Air 05/01/20 12:27 82 108/59 (75) Room Air 05/01/20 12:12 77 16 111/59 (76) Room Air 05/01/20 11:57 81 113/59 (77) Room Air 05/01/20 11:42 90 109/56 (73) Room Air 05/01/20 11:27 95 111/54 (73) Room Air 05/01/20 11:12 96 119/59 (79) Room Air 05/01/20 11:00 83 115/57 (76) Room Air 05/01/20 10:55 37.2 98 16 130/55 (80) Room Air 05/01/20 10:45 101 128/66 (86) Room Air 05/01/20 10:30 Room Air 05/01/20 10:15 96 18 124/60 (81) Room Air 05/01/20 10:00 76 103/57 (72) Room Air 05/01/20 09:45 76 107/58 (74) Room Air 05/01/20 09:30 75 105/58 (74) Room Air 05/01/20 09:15 37.0 90 109/58 (75) Room Air I & O 05/02/20 07:00 Intake Total 2100 ml Balance 2100 ml Vital signs are stable. Patient is afebrile. Fundus is firm below the umbilicus and nontender. Extremities show no clubbing or cyanosis. There is no Homans sign. Assessment and plan day number 1 status post term spontaneous vaginal delivery doing well. Plan is for routine convalescence. May 03, 2020 Patient without complaint. She is ambulating, voiding, tolerating oral intake well has good pain control. Patient is requesting discharge home. Vital Signs Date Time Temp Pulse Resp B/P (MAP) Pulse Ox O2 Delivery O2 Flow Rate FiO2 05/03/20 03:15 36.7 63 18 93/58 (70) 05/02/20 23:09 36.9 64 18 121/73 (89) 100 Room Air 05/02/20 17:30 36.5 75 18 119/58 (78) 98 Room Air 05/02/20 13:45 36.9 89 18 110/55 (73) 97 Room Air 05/02/20 09:00 36.5 77 18 115/56 (75) 98 Room Air Vital signs are stable. Patient is afebrile. Fundus is firm below the umbilicus and nontender. Extremities show no clubbing cyanosis. There is no Homans sign. Assessment and plan was day number 2 status post term spontaneous vaginal delivery doing well. Plan for discharge home with follow-up in clinic Final Diagnosis 39 week spontaneous vaginal delivery RASHMI MARIE MD May 03, 2020 07:33
[2020-05-03 10:12] VITALS: BP 126/71
[2020-05-03] MEDS: DOCUSATE SODIUM 100 MG (COLACE) CAP PO SCH (10:15)
--- NOTE | 2020-05-03 11:24 | NUR ---
Discharge instructions explained to pt with copy provided to pt along with narcotic script. Pt notified of follow up appointment made and other scripts available at [facility]. Pt verbalizes understanding of instructions and signs to verify. Denies questions or concerns at this time.
--- NOTE | 2020-05-03 13:45 | NUR ---
Pt ambulates off unit to private vehicle accompanied by RN, S.O., infant and all personal belongings. No s/s of distress noted.
== END 2020-05-03 13:45 | disposition home or self-care (01) | DRG 807 ==
LOC: LDRP 19:05
PROVIDERS: ADMIT Obstetrics & Gynecology; ATTEND Obstetrics & Gynecology
PROC: 10E0XZZ Delivery of Products of Conception, External Approach (ICD-10-PCS; principal; 2020-05-01)
PROC: 0KQM0ZZ Repair Perineum Muscle, Open Approach (ICD-10-PCS; 2020-05-01)
DX: O24.429 Gestational diabetes mellitus in childbirth, unspecified control (principal); Z37.0 Single live birth; Z3A.39 39 weeks gestation of pregnancy; O99.824 Streptococcus B carrier state complicating childbirth; Z88.1 Allergy status to other antibiotic agents; O70.1 Second degree perineal laceration during delivery
CPT/HCPCS: 36415; 82962; 85025; 86850; 86900; 86901; 88307